=== PATIENT | male | born 1960 | race Hispanic/Latino ===

== ENCOUNTER 2016-06-09 02:25 | Inpatient (IN) | payer MEDICAID, OTHER ==
[2016-06-09 03:18] LABS: Basophils % (Auto) 0.6 % (0.0-1.8); Eosinophils % (Auto) 3.8 % (0.0-4.3); Hematocrit 36.6 % (35.5-45.6); Hemoglobin 12.2 gm/dl (11.8-15.2); Mean Corpuscular HGB Conc 33 % (32-34); Mean Corpuscular Hemoglobin 31 pg (28-32); Mean Corpuscular Volume 94 fl (84-94); Platelet Count 123 K/mm3 (140-440); Red Blood Count 3.91 M/mm3 (3.65-5.03); White Blood Count 7.8 K/mm3 (4.5-11.0)
[2016-06-09 03:31] LABS: BUN/Creatinine Ratio 13.84; Calcium 9.2 mg/dL (8.4-10.2); Chloride 96.7 mmol/L (98-107); Potassium 3.4 mmol/L (3.6-5.0)
[2016-06-09] MEDS ORDERED: VANCOMYCIN VIAL IV ONE (07:04)
[2016-06-09] MEDS ORDERED: MORPHINE IV ONE (07:06)
[2016-06-09] MEDS ORDERED: K-DUR PO ONE (07:07)
--- NOTE | 2016-06-09 07:07 | Emergency Department Report ---
ED General Adult HPI - General Chief complaint: Extremity Problem,Nontraumatic Stated complaint: LEG PAIN Time Seen by Provider: 06/09/16 06:54 Source: patient, EMS, RN notes reviewed Mode of arrival: Wheelchair Limitations: Physical Limitation - History of Present Illness Initial comments: This is a 55-year-old male. He is previously unknown to me. Has a past medical history of alcoholic cirrhosis, hepatic encephalopathy, and is a poor historian. The patient reports that a few weeks ago he was admitted to a hospital in [place], ([place]), and had an open reduction internal fixation of a left lower extremity ankle injury. He does not recall the name of his orthopedic surgeon. He was then discharged, and followed up at another hospital over here in [place] , [facility], and was found to have infected hardware, hardware was taken out, patient was admitted to the hospital, but he signed out AGAINST MEDICAL ADVICE. He does not know the name of the orthopedic surgeon there who removed the hardware. He presents to the ER today complaining of sharp pain to the left distal ankle, redness, pus, swelling, discharge. No fevers or chills, no chest pain or shortness of breath, no abdominal pain, no homicidal suicidal ideations. The pain is sharp, constant, does not radiate anywhere, increases with palpation , range of motion, and decreases with rest. -: Gradual Location: left, lower extremity Severity scale (0 -10): 5 Quality: aching, sharp Consistency: constant Improves with: rest Worsens with: movement Associated Symptoms: loss of appetite, malaise, weakness. denies: chest pain, cough, diaphoresis, headaches - Related Data Previous Rx's Medication Instructions Recorded Last Taken Type Ciprofloxacin HCl [Ciprofloxacin 500 mg PO BID 42 Days 06/14/16 Unknown Rx TAB] Lactulose 15 - 30 ml PO TID PRN 30 Days 06/14/16 Unknown Rx Levothyroxine [Synthroid] 88 mcg PO DAILY #30 tablet 06/14/16 Unknown Rx Multivitamin Tab [Multiple Vitamin 1 each PO DAILY #30 tablet 06/14/16 Unknown Rx TAB (Theragran)] Omeprazole 20 mg PO QDAY #30 06/14/16 Unknown Rx Rifaximin [Xifaxan] 550 mg PO BID #60 tablet 06/14/16 Unknown Rx Spironolactone 50 mg PO QDAY #30 06/14/16 Unknown Rx Thiamine [Vitamin B-1] 100 mg PO QDAY #30 tablet 06/14/16 Unknown Rx oxyCODONE [Roxicodone TAB] 5 mg PO Q6HR #20 tablet 06/14/16 Unknown Rx Allergies Allergy/AdvReac Type Severity Reaction Status Date / Time No Known Allergies Allergy Verified 10/06/15 09:46 ED Review of Systems ROS: Stated complaint: LEG PAIN Other details as noted in HPI Constitutional: malaise. denies: fever Eyes: denies: vision change ENT: denies: epistaxis Respiratory: see HPI Cardiovascular: denies: chest pain Gastrointestinal: denies: abdominal pain Genitourinary: as per HPI Musculoskeletal: joint swelling, arthralgia, myalgia Skin: lesions, change in color Neurological: weakness Psychiatric: denies: suicidal thoughts ED Past Medical Hx - Past Medical History Previous Medical History?: Yes Hx HIV: No Additional medical history: encephalopathy / MRSA - Surgical History Past Surgical History?: No - Social History Smoking Status: Current Every Day Smoker Substance Use Type: Alcohol - Medications Home Medications: Home Medications Medication Instructions Recorded Confirmed Last Taken Type Ciprofloxacin HCl [Ciprofloxacin 500 mg PO BID 42 Days 06/14/16 Unknown Rx TAB] Lactulose 15 - 30 ml PO TID PRN 30 Days 06/14/16 Unknown Rx Levothyroxine [Synthroid] 88 mcg PO DAILY #30 tablet 06/14/16 Unknown Rx Multivitamin Tab [Multiple Vitamin 1 each PO DAILY #30 tablet 06/14/16 Unknown Rx TAB (Theragran)] Omeprazole 20 mg PO QDAY #30 06/14/16 Unknown Rx Rifaximin [Xifaxan] 550 mg PO BID #60 tablet 06/14/16 Unknown Rx Spironolactone 50 mg PO QDAY #30 06/14/16 Unknown Rx Thiamine [Vitamin B-1] 100 mg PO QDAY #30 tablet 06/14/16 Unknown Rx oxyCODONE [Roxicodone TAB] 5 mg PO Q6HR #20 tablet 06/14/16 Unknown Rx ED Physical Exam - General Limitations: No Limitations, Physical Limitation General appearance: in no apparent distress, lethargic - Head Head exam: Present: atraumatic, normocephalic - Eye Eye exam: Present: normal appearance, EOMI. Absent: nystagmus - ENT ENT exam: Present: normal exam, normal orophraynx, mucous membranes moist, normal external ear exam - Neck Neck exam: Present: normal inspection, full ROM. Absent: tenderness, meningismus - Respiratory Respiratory exam: Present: normal lung sounds bilaterally. Absent: respiratory distress, wheezes, rales, rhonchi, stridor, chest wall tenderness, accessory muscle use, decreased breath sounds - Cardiovascular Cardiovascular Exam: Present: regular rate, normal rhythm, normal heart sounds. Absent: bradycardia, tachycardia, irregular rhythm, systolic murmur, diastolic murmur, rubs, gallop - GI/Abdominal GI/Abdominal exam: Present: soft, normal bowel sounds. Absent: distended, tenderness, guarding, rebound, rigid, pulsatile mass - Rectal Rectal exam: Present: deferred - Extremities Exam Extremities exam: Present: tenderness, normal capillary refill, other (the bilateral upper extremities are unremarkable and within normal limits. The right lower extremity is unremarkable and within normal limits. At the distal aspect of the left lower extremity, sutures are noted, surgical site appears to be red, with purulence. 2+ pulses noted in 4 extremities, the compartments are soft. The pelvis is stable. The foot is nontender. The knee, and thigh are also unremarkable.). Absent: calf tenderness - Back Exam Back exam: Present: normal inspection, full ROM. Absent: tenderness, CVA tenderness (R), CVA tenderness (L), muscle spasm, paraspinal tenderness, vertebral tenderness - Neurological Exam Neurological exam: Present: alert, oriented X3, other (Extraocular movements intact. Tongue midline. No facial droop. Facial sensation intact to light touch in the V1, V2, V3 distribution bilaterally. 5 and 5 strength in 4 extremities.. Sensation is intact to light touch in 4 extremities.). Absent: motor sensory deficit - Psychiatric Psychiatric exam: Absent: homicidal ideation, suicidal ideation - Skin Skin exam: Present: rash, erythema ED Course Vital Signs 06/09/16 06/09/16 06/09/16 02:44 05:52 06:06 Temperature 98.1 F Pulse Rate 90 66 Respiratory 16 18 18 Rate Blood Pressure 130/104 Blood Pressure 110/59 [Left] O2 Sat by Pulse 97 99 Oximetry 06/09/16 06/09/16 06/09/16 08:31 08:40 08:50 Temperature Pulse Rate Respiratory Rate Blood Pressure 120/64 120/64 120/66 Blood Pressure [Left] O2 Sat by Pulse 96 97 Oximetry 06/09/16 06/09/16 06/09/16 09:00 09:13 09:21 Temperature Pulse Rate Respiratory Rate Blood Pressure 120/66 125/66 Blood Pressure [Left] O2 Sat by Pulse 96 97 95 Oximetry 06/09/16 06/09/16 06/09/16 09:30 09:41 09:51 Temperature Pulse Rate Respiratory Rate Blood Pressure 127/61 127/61 122/53 Blood Pressure [Left] O2 Sat by Pulse 96 98 98 Oximetry 06/09/16 10:00 Temperature Pulse Rate Respiratory Rate Blood Pressure 121/62 Blood Pressure [Left] O2 Sat by Pulse 94 Oximetry - Reevaluation(s) Reevaluation #1: 06/09/16 08:50 Differential diagnosis: Osteomyelitis, cellulitis, myositis, alcohol dependence , chronic hepatic encephalopathy Assessment and plan: 55-year-old male with probable osteomyelitis and sialitis. He is afebrile with return vital signs, somnolent, but easily arousable, protecting his airway. He is alert and oriented 3, has a GCS of 15, with an NIH score of 0, he is not homicidal, he is not suicidal, he does not require 1013 at this time. We are attempting to obtain his old medical records from the other facility, they have not been sent yet. Case is discussed with the Hospital physician, Dr. Ricardo, he accepts the patient to his service. Case discussed with orthopedics, Dr. Olivas, he will follow as a consult. Blood cultures, , wound cultures sent, we will treat the patient with vancomycin and gentamicin pending culture results. I will defer to the inpatient team to consult infectious disease if they feel like it is required. ED Medical Decision Making - Lab Data Result diagrams: 06/10/16 06:20 06/10/16 06:20 Vital Signs 06/09/16 06/09/16 06/09/16 02:44 05:52 06:06 Temperature 98.1 F Pulse Rate 90 66 Respiratory 16 18 18 Rate Blood Pressure 130/104 Blood Pressure 110/59 [Left] O2 Sat by Pulse 97 99 Oximetry Lab Results 06/09/16 06/09/16 06/09/16 Range/Units 02:56 02:56 07:17 WBC 7.8 (4.5-11.0) K/mm3 RBC 3.91 (3.65-5.03) M/mm3 Hgb 12.2 (11.8-15.2) gm/dl Hct 36.6 (35.5-45.6) % MCV 94 (84-94) fl MCH 31 (28-32) pg MCHC 33 (32-34) % RDW 15.0 (13.2-15.2) % Plt Count 123 L (140-440) K/mm3 Lymph % (Auto) 19.0 (13.4-35.0) % [place] % (Auto) 11.9 H (0.0-7.3) % Eos % (Auto) 3.8 (0.0-4.3) % Baso % (Auto) 0.6 (0.0-1.8) % Lymph # 1.5 (1.2-5.4) K/mm3 [place] # 0.9 H (0.0-0.8) K/mm3 Eos # 0.3 (0.0-0.4) K/mm3 Baso # 0.0 (0.0-0.1) K/mm3 Seg Neutrophils % 64.7 (40.0-70.0) % Seg Neutrophils # 5.0 (1.8-7.7) K/mm3 ESR 12 (0-20) mm/Hr PT (12.2-14.9) Sec. INR (0.87-1.13) Sodium 134 L (137-145) mmol/L Potassium 3.4 L (3.6-5.0) mmol/L Chloride 96.7 L (98-107) mmol/L Carbon Dioxide 21 L (22-30) mmol/L Anion Gap 20 mmol/L BUN 18 (9-20) mg/dL Creatinine 1.3 (0.8-1.5) mg/dL Estimated GFR 58 ml/min BUN/Creatinine Ratio 13.84 % Glucose 76 (75-100) mg/dL Lactic Acid (0.7-2.0) mmol/L Calcium 9.2 (8.4-10.2) mg/dL Magnesium (1.7-2.3) mg/dL Total Bilirubin (0.1-1.2) mg/dL Direct Bilirubin (0-0.2) mg/dL Indirect Bilirubin mg/dL AST (5-40) units/L ALT (7-56) units/L Alkaline Phosphatase (35-129) units/L Ammonia (25-60) umol/L Total Creatine Kinase (55-170) units/L C-Reactive Protein (0.00-1.30) mg/dL Total Protein (6.3-8.2) g/dL Albumin (3.9-5) g/dL Albumin/Globulin Ratio % 06/09/16 06/09/16 06/09/16 Range/Units 07:17 07:17 07:17 WBC (4.5-11.0) K/mm3 RBC (3.65-5.03) M/mm3 Hgb (11.8-15.2) gm/dl Hct (35.5-45.6) % MCV (84-94) fl MCH (28-32) pg MCHC (32-34) % RDW (13.2-15.2) % Plt Count (140-440) K/mm3 Lymph % (Auto) (13.4-35.0) % [place] % (Auto) (0.0-7.3) % Eos % (Auto) (0.0-4.3) % Baso % (Auto) (0.0-1.8) % Lymph # (1.2-5.4) K/mm3 [place] # (0.0-0.8) K/mm3 Eos # (0.0-0.4) K/mm3 Baso # (0.0-0.1) K/mm3 Seg Neutrophils % (40.0-70.0) % Seg Neutrophils # (1.8-7.7) K/mm3 ESR (0-20) mm/Hr PT 15.2 H (12.2-14.9) Sec. INR 1.21 H (0.87-1.13) Sodium (137-145) mmol/L Potassium (3.6-5.0) mmol/L Chloride (98-107) mmol/L Carbon Dioxide (22-30) mmol/L Anion Gap mmol/L BUN (9-20) mg/dL Creatinine (0.8-1.5) mg/dL Estimated GFR ml/min BUN/Creatinine Ratio % Glucose (75-100) mg/dL Lactic Acid (0.7-2.0) mmol/L Calcium (8.4-10.2) mg/dL Magnesium (1.7-2.3) mg/dL Total Bilirubin 1.1 (0.1-1.2) mg/dL Direct Bilirubin 0.4 H (0-0.2) mg/dL Indirect Bilirubin 0.7 mg/dL AST 33 (5-40) units/L ALT 15 (7-56) units/L Alkaline Phosphatase 79 (35-129) units/L Ammonia 68.0 H (25-60) umol/L Total Creatine Kinase 135 (55-170) units/L C-Reactive Protein 2.30 H (0.00-1.30) mg/dL Total Protein 6.2 L (6.3-8.2) g/dL Albumin 3.0 L (3.9-5) g/dL Albumin/Globulin Ratio 0.9 % 06/09/16 06/09/16 Range/Units 07:17 07:28 WBC (4.5-11.0) K/mm3 RBC (3.65-5.03) M/mm3 Hgb (11.8-15.2) gm/dl Hct (35.5-45.6) % MCV (84-94) fl MCH (28-32) pg MCHC (32-34) % RDW (13.2-15.2) % Plt Count (140-440) K/mm3 Lymph % (Auto) (13.4-35.0) % [place] % (Auto) (0.0-7.3) % Eos % (Auto) (0.0-4.3) % Baso % (Auto) (0.0-1.8) % Lymph # (1.2-5.4) K/mm3 [place] # (0.0-0.8) K/mm3 Eos # (0.0-0.4) K/mm3 Baso # (0.0-0.1) K/mm3 Seg Neutrophils % (40.0-70.0) % Seg Neutrophils # (1.8-7.7) K/mm3 ESR (0-20) mm/Hr PT (12.2-14.9) Sec. INR (0.87-1.13) Sodium (137-145) mmol/L Potassium (3.6-5.0) mmol/L Chloride (98-107) mmol/L Carbon Dioxide (22-30) mmol/L Anion Gap mmol/L BUN (9-20) mg/dL Creatinine (0.8-1.5) mg/dL Estimated GFR ml/min BUN/Creatinine Ratio % Glucose (75-100) mg/dL Lactic Acid 1.7 (0.7-2.0) mmol/L Calcium (8.4-10.2) mg/dL Magnesium 1.7 (1.7-2.3) mg/dL Total Bilirubin (0.1-1.2) mg/dL Direct Bilirubin (0-0.2) mg/dL Indirect Bilirubin mg/dL AST (5-40) units/L ALT (7-56) units/L Alkaline Phosphatase (35-129) units/L Ammonia (25-60) umol/L Total Creatine Kinase (55-170) units/L C-Reactive Protein (0.00-1.30) mg/dL Total Protein (6.3-8.2) g/dL Albumin (3.9-5) g/dL Albumin/Globulin Ratio % - Radiology Data Radiology results: image reviewed interpreted by me: X-ray of the left ankle demonstrates soft tissue swelling, osseous disruption of the distal fibula, likely consistent with osteomyelitis. Critical care attestation.: If time is entered above; I have spent that time in minutes in the direct care of this critically ill patient, excluding procedure time. ED Disposition Clinical Impression: Osteomyelitis Qualifiers: Laterality: left Disposition: OP ADMITTED IP TO THIS HOSP Is pt being admited?: Yes Condition: Good
[2016-06-09] MEDS ORDERED: GARAMYCIN 120 MG in NACL 0.9% 100 ML IV SCH (07:15)
[2016-06-09 07:59] LABS: Albumin/Globulin Ratio 0.9 %; Bilirubin,Direct 0.4 mg/dL (0-0.2); Bilirubin,Indirect 0.7 mg/dL; Bilirubin,Total 1.1 mg/dL (0.1-1.2); C-Reactive Protein 2.3 mg/dL (0.00-1.30); Total Protein 6.2 g/dL (6.3-8.2)
[2016-06-09] MEDS ORDERED: VANCOMYCIN PHARMACY TO DOSE IV SCH (08:00)
[2016-06-09] MEDS ORDERED: VANCOMYCIN 1,750 MG in NACL 0.9% 500 ML 500 ML IV ONE (08:00)
[2016-06-09 08:09] LABS: INR 1.21 (0.87-1.13)
--- NOTE | 2016-06-09 08:42 | Admit Criteria Form ---
Admission Criteria Documentation: OSTEOMYELITIS Clinical Indications for Admission to Inpatient Care (Place 'X' for any and all applicable criteria) Admission is indicated by 1 or more of the following (1)(2)(3)(4)(5)(6): [ ] I. Significant systemic illness indicated by 2 or more of the following: [ ]a) Core (eg rectal) temperature greater or equal [id number](37.8C) in an adult [ ]b) Oral temperature[A] greater than or equal to 99.3 degrees F ( 37.4 degrees C) in an adult [ ]c) Heart rate greater than 90 beats per minute [ ]d) Respiratory rate greater than 20 breaths per minute or PaCO2 less than 32 mm Hg (4.3 kPa) [ ]e) White blood cell count > 12,000/mm3 (12 x109/L) or < 4000/mm3 ( 4 x109/L) or > 10% band cells [ ] II. Hemodynamic instability [X ] III. Severe pain requiring acute inpatient management [ ] IV. Bacteremia [ ] V. Altered Mental status that is severe or persistent [ X] . Limb-threatening infection [ ] VII. Suspected necrotizing soft tissue infection (e.g., gas in tissue) [ ] VIII.Surgical intervention required (e.g., bone or soft tissue debridement, removal of foreign body, or revascularization procedure) not performable in outpatient or emergency department level of care(7) [ ] IX. Appropriate monitoring and therapy (IV antibiotics) cannot be immediately arranged for home or outpatient setting [ X] X. Failure of outpatient treatment [X ] XI. High-risk comorbid condition present including 1 or more of the following: [ ]a) Poorly controlled diabetes (e.g., HbA1c greater than 10% (0.1)) [ ]b) Vascular insufficiency to affected area [ X]c) Cirrhosis [ ]d) Neutropenia [ ]e) Asplenia [ ]f) Immunosuppression (e.g., chronic systemic corticosteroid use) [ ]g) Symptomatic heart failure [ ] XII. Joint involvement (e.g., septic arthritis) suspected [ ] XIII.Vertebral osteomyelitis [ ] XIV. Skull-base osteomyelitis (e.g.,"malignant external otitis")[A](8)(9)(10 ) Extended stay beyond goal length of stay may be needed for(1)(3)(4)(5)(24)(25): [ ]a) Inadequate clinical response to antibiotics (e.g., continued fever, hypotension) [ ]b) Bacteremia [ ]c) Surgical intervention needed (e.g., beyond superficial debridement)(26) [ ]d) Vertebral osteomyelitis with spinal cord compression, abscess formation, or mechanical instability [ ]e) Antibiotic-resistant organism identified (e.g., methicillin-resistant Staphylococcal aureus) [ ]f) Severe concomitant cellulitis [ ]g) Acute metabolic disorder [ ]h) Unstable comorbidities (e.g., heart failure, renal insufficiency, immunosuppressed state)(28) [ ]i) Clinically significant malnutrition [ ]j) Acute renal failure The original [facility] tibdit content created by Cristy Galeano has been revised. The portions of the content which have been revised are identified through the use of italic text or in bold, and Cristy Galeano has neither reviewed nor approved the modified material. All other unmodified content is copyright [facility] Galeano.Edition 2016. Admission Criteria Met: Yes
--- NOTE | 2016-06-09 08:54 | History and Physical Report ---
History of Present Illness Date of examination: 06/09/16 Past History Past Medical History: GERD, other (S/P Left ankle repair with hardware) Medications and Allergies Allergies Allergy/AdvReac Type Severity Reaction Status Date / Time No Known Allergies Allergy Verified 10/06/15 09:46 Home Medications Medication Instructions Recorded Confirmed Last Taken Type Lactulose 15 - 30 ml PO TID PRN 10/06/15 10/06/15 Unknown History Ms Contin ER 30 mg PO QDAY 10/06/15 10/06/15 Unknown History Omeprazole 20 mg PO QDAY 10/06/15 10/06/15 Unknown History SEROquel 50 mg PO QHS 10/06/15 10/06/15 Unknown History Spironolactone 50 mg PO QDAY 10/06/15 10/06/15 Unknown History Xifaxan 550 mg PO BID 10/06/15 10/06/15 Unknown History Multivitamin Tab [Multiple Vitamin 1 each PO DAILY tablet 10/10/15 Unknown Rx TAB (Theragran)] Rifaximin [Xifaxan] 550 mg PO BID #60 tablet 10/10/15 Unknown Rx Thiamine [Vitamin B-1] 100 mg PO QDAY #30 tablet 10/10/15 Unknown Rx Active Meds: Active Medications Gentamicin Sulfate 120 mg/ (Sodium Chloride) 103 mls @ 200 mls/hr IV NOW JESIKA PRN Reason: Protocol Last Admin: 06/09/16 08:33 Dose: 200 mls/hr Vancomycin HCl 1,750 mg/ (Sodium Chloride) 535 mls @ 333.333 mls/hr IV ONCE.ED ONE Stop: 06/09/16 09:36 Vancomycin HCl 1,250 mg/ (Sodium Chloride) 275 mls @ 166.667 mls/hr IV Q24H JESIKA Vancomycin HCl (Vancomycin Pharmacy To Dose) 1 each IV PKCONSULT JESIKA PRN Reason: Protocol Review of Systems Musculoskeletal: redness of joints, hot joints Exam - Constitutional Vitals: Temp Pulse Resp BP Pulse Ox 98.1 F 66 18 110/59 99 06/09/16 02:44 06/09/16 06:06 06/09/16 06:06 06/09/16 06:06 06/09/16 06:06 General appearance: Present: mild distress - EENT Eyes: Present: PERRL, EOM intact ENT: hearing intact, clear oral mucosa, dentition normal - Neck Neck: Present: supple, normal ROM - Respiratory Respiratory effort: normal Respiratory: bilateral: CTA - Cardiovascular Rhythm: regular Heart Sounds: Present: S1 & S2 - Extremities Extremity abnormal: edema, erythema, tenderness, other (Yellowish drainage from left ankle) - Abdominal General gastrointestinal: Present: soft, non-tender, non-distended, normal bowel sounds - Musculoskeletal Musculoskeletal: strength equal bilaterally - Psychiatric Psychiatric: appropriate mood/affect, intact judgment & insight - Neurologic Neurologic: CNII-XII intact, moves all extremities Results - Labs CBC & Chem 7: 06/09/16 02:56 06/09/16 02:56 Labs: Laboratory Last Values WBC 7.8 K/mm3 (4.5-11.0) 06/09/16 02:56 RBC 3.91 M/mm3 (3.65-5.03) 06/09/16 02:56 Hgb 12.2 gm/dl (11.8-15.2) 06/09/16 02:56 Hct 36.6 % (35.5-45.6) 06/09/16 02:56 MCV 94 fl (84-94) 06/09/16 02:56 MCH 31 pg (28-32) 06/09/16 02:56 MCHC 33 % (32-34) 06/09/16 02:56 RDW 15.0 % (13.2-15.2) 06/09/16 02:56 Plt Count 123 K/mm3 (140-440) L 06/09/16 02:56 Lymph % (Auto) 19.0 % (13.4-35.0) 06/09/16 02:56 [place] % (Auto) 11.9 % (0.0-7.3) H 06/09/16 02:56 Eos % (Auto) 3.8 % (0.0-4.3) 06/09/16 02:56 Baso % (Auto) 0.6 % (0.0-1.8) 06/09/16 02:56 Lymph # 1.5 K/mm3 (1.2-5.4) 06/09/16 02:56 [place] # 0.9 K/mm3 (0.0-0.8) H 06/09/16 02:56 Eos # 0.3 K/mm3 (0.0-0.4) 04/28/17 02:56 Baso # 0.0 K/mm3 (0.0-0.1) 06/09/16 02:56 Seg Neutrophils % 64.7 % (40.0-70.0) 06/09/16 02:56 Seg Neutrophils # 5.0 K/mm3 (1.8-7.7) 06/09/16 02:56 ESR 12 mm/Hr (0-20) 06/09/16 07:17 PT 15.2 Sec. (12.2-14.9) H 06/09/16 07:17 INR 1.21 (0.87-1.13) H 06/09/16 07:17 Sodium 134 mmol/L (137-145) L 06/09/16 02:56 Potassium 3.4 mmol/L (3.6-5.0) L 06/09/16 02:56 Chloride 96.7 mmol/L (98-107) L 06/09/16 02:56 Carbon Dioxide 21 mmol/L (22-30) L 06/09/16 02:56 Anion Gap 20 mmol/L 06/09/16 02:56 BUN 18 mg/dL (9-20) 06/09/16 02:56 Creatinine 1.3 mg/dL (0.8-1.5) 06/09/16 02:56 Estimated GFR 58 ml/min 06/09/16 02:56 BUN/Creatinine Ratio 13.84 % 06/09/16 02:56 Glucose 76 mg/dL (75-100) 06/09/16 02:56 Lactic Acid 1.7 mmol/L (0.7-2.0) 06/09/16 07:28 Calcium 9.2 mg/dL (8.4-10.2) 06/09/16 02:56 Magnesium 1.7 mg/dL (1.7-2.3) 06/09/16 07:17 Total Bilirubin 1.1 mg/dL (0.1-1.2) 06/09/16 07:17 Direct Bilirubin 0.4 mg/dL (0-0.2) H 06/09/16 07:17 Indirect Bilirubin 0.7 mg/dL 06/09/16 07:17 AST 33 units/L (5-40) 06/09/16 07:17 ALT 15 units/L (7-56) 06/09/16 07:17 Alkaline Phosphatase 79 units/L (35-129) 06/09/16 07:17 Ammonia 68.0 umol/L (25-60) H 06/09/16 07:17 Total Creatine Kinase 135 units/L (55-170) 06/09/16 07:17 C-Reactive Protein 2.30 mg/dL (0.00-1.30) H 06/09/16 07:17 Total Protein 6.2 g/dL (6.3-8.2) L 06/09/16 07:17 Albumin 3.0 g/dL (3.9-5) L 06/09/16 07:17 Albumin/Globulin Ratio 0.9 % 06/09/16 07:17 Assessment and Plan - Patient Problems (1) Ankle osteomyelitis, left Current Visit: Yes Status: Acute Qualifiers: Chronicity: C Plan to address problem: We will start patient on IV antibiotics, will get infectious disease consult, will get orthopedic consult, adequate pain control. (2) Abscess or cellulitis of ankle Current Visit: Yes Status: Acute Plan to address problem: We will start patient on IV antibiotics, will get infectious disease consult, will get orthopedic consult, adequate pain control.
--- NOTE | 2016-06-09 08:58 | XRay Report ---
Left ankle: Ankle swelling and infection. There is moderate swelling involving the soft tissues of the distal leg extending into the proximal foot. There is some ulceration along lateral ankle tissues. There are severe destructive changes of the distal fibula and possibly involving the distal lateral tibia. The bones otherwise appear well mineralized. Impression: Soft tissue findings of infection and bony destruction consistent with osteomyelitis.
[2016-06-09] MEDS ORDERED: TYLENOL PO PRN (09:05)
[2016-06-09] MEDS ORDERED: MILK OF MAGNESIA PO PRN (09:05)
[2016-06-09] MEDS ORDERED: ZOFRAN IV PRN (09:05)
[2016-06-09] MEDS ORDERED: DULCOLAX PR PRN (09:05)
[2016-06-09] MEDS ORDERED: LOVENOX SUB-Q SCH (10:00)
[2016-06-09] MEDS: PERCOCET 5/325 PO PRN (11:26)
[2016-06-09] MEDS: NACL 0.9% 1000 ML 1,000 ML IV SCH ×2 (11:26→20:36)
[2016-06-09] MEDS: LOVENOX SUB-Q SCH (12:50)
--- NOTE | 2016-06-09 14:52 | Consultation ---
History of Present Illness - HPI Consult date: 06/09/16 Consult reason: other History of present illness: Left ankle infection Past History Past Medical History: GERD, other (S/P Left ankle repair with hardware) Medications and Allergies Allergies Allergy/AdvReac Type Severity Reaction Status Date / Time No Known Allergies Allergy Verified 10/06/15 09:46 Home Medications Medication Instructions Recorded Confirmed Last Taken Type Lactulose 15 - 30 ml PO TID PRN 10/06/15 06/09/16 06/08/16 History 15ml Omeprazole 20 mg PO QDAY 10/06/15 06/09/16 06/08/16 History 1 Spironolactone 50 mg PO QDAY 10/06/15 06/09/16 06/08/16 History 1 tab Multivitamin Tab [Multiple Vitamin 1 each PO DAILY tablet 10/10/15 06/09/16 Rx TAB (Theragran)] 1 tab Rifaximin [Xifaxan] 550 mg PO BID #60 tablet 10/10/15 06/09/16 06/06/16 Rx 1 tab Thiamine [Vitamin B-1] 100 mg PO QDAY #30 tablet 10/10/15 06/09/16 06/08/16 Rx 1 tab Active Meds: Active Medications Acetaminophen (Tylenol) 650 mg PO Q4H PRN PRN Reason: Pain MILD(1-3)/Fever >100.5/JAY Bisacodyl (Dulcolax) 10 mg [place] QDAY PRN PRN Reason: Constipation unrelieved by MOM Enoxaparin Sodium (Lovenox) 40 mg SUB-Q QDAY@1000 JESIKA Last Admin: 06/09/16 12:50 Dose: 40 mg Vancomycin HCl 1,250 mg/ (Sodium Chloride) 275 mls @ 166.667 mls/hr IV Q18H [facility] Sodium Chloride (Nacl 0.9% 1000 Ml) 1,000 mls @ 125 mls/hr IV DIRECT [facility] Last Admin: 06/09/16 11:26 Dose: 125 mls/hr Magnesium Hydroxide (Milk Of Magnesia) 30 ml PO Q4H PRN PRN Reason: Constipation Morphine Sulfate (Morphine) 2 mg IV Q4H PRN PRN Reason: Pain, Moderate (4-6) Ondansetron HCl (Zofran) 4 mg IV Q8H PRN PRN Reason: N/V unrelieved by Reglan Oxycodone/Acetaminophen (Percocet 5/325) 1 tab PO Q6H PRN PRN Reason: Pain, Moderate (4-6) Last Admin: 06/09/16 11:26 Dose: 1 tab Vancomycin HCl (Vancomycin Pharmacy To Dose) 1 each IV PKCONSULT JESIKA PRN Reason: Protocol Assessment and Plan - Patient Problems (1) Osteomyelitis Current Visit: Yes Status: Acute Qualifiers: Osteomyelitis location: O Laterality: left Chronicity: subacute Plan to address problem: ID consult.,antibiotics( may need for 6 weeks) Crutches, elevation, partial wt bearing Local wound care. To be discharged with antibiotics, follow up with his surgeon (Dr. Ward who operated on him two weeks ago) See voice Dictation (2) Continuous opioid dependence Current Visit: Yes Status: Chronic Plan to address problem: On oxycontin since 2010, medical management per air table operator
[2016-06-09] MEDS: MORPHINE IV PRN ×2 (17:17→20:28)
[2016-06-10] MEDS: MORPHINE IV PRN ×3 (00:48→10:02)
[2016-06-10] MEDS: VANCOMYCIN 1,250 MG in NACL 0.9% 250ML 250 ML IV SCH ×2 (01:08→20:27)
--- NOTE | 2016-06-10 03:03 | Consultation ---
REASON FOR CONSULTATION: Osteomyelitis, left distal fibula. HISTORY OF PRESENT ILLNESS: This is a 55-year-old man who approximately 4 weeks ago or so sustained a crush injury with fracture involving the lateral malleolus. He was in [place] where he underwent open reduction and internal fixation and subsequently developed infection. He then presented to [facility] where he was seen by Dr. Deandre Ward who then removed internal fixation. He was hospitalized and because of the infection recommend long-term antibiotics. Somehow, he got himself discharged. He presented to the Emergency Room with redness, pain and was admitted through the Emergency Room by the hospitalist, Internal Medicine service. Orthopedic consultation requested for because of the \\"osteomyelitis/cellulitis of the ankle.\\" PAST MEDICAL HISTORY: Include he has a brain surgery in 2010 or so. Chronic narcotic addiction, he has been on OxyContin since 2010 on a frequent basis and he had been obtaining these medications in [place]. He reports that since he came to [place] and to [place] he did not have his medications and therefore his pain has increased and he also reports that he developed a seizure because of this. PHYSICAL EXAMINATION: Today shows a fairly well. He appears comfortable in bed. Examination of the ankle area shows he has sutures in place. There is an area of redness along the incisional region. There was minimal serosanguineous drainage at the lower part of the incision. Circulatory status of the extremity appears intact. IMAGING: X-rays of the ankle, AP and lateral views shows the internal fixation device has been completely removed. There are posttraumatic changes with destruction of the lateral malleolar region consistent with probable osteomyelitis in this area. DIAGNOSES: 1. Possible osteomyelitis with cellulitis, lateral malleolus, left ankle. 2. Chronic narcotic dependency and chronic pain. RECOMMENDATIONS: At this time would be to continue with antibiotics and I believe he will need antibiotics for a period of 6 weeks or so. Recommend ID consultation and appropriate antibiotic therapy, crutches, protected weightbearing, and nonnarcotic analgesics for pain control. Once the antibiotics can be arranged, he can be discharged. He could follow up with his operating surgeon, Dr. Deandre Ward on an outpatient basis. Thank you for this consultation. Sincerely, JOB# [id number] RVN/NTS
[2016-06-10] MEDS: PERCOCET 5/325 PO PRN ×2 (03:14→08:31)
[2016-06-10] MEDS: NACL 0.9% 1000 ML 1,000 ML IV SCH ×2 (06:35→18:48)
[2016-06-10 06:55] LABS: Basophils % (Auto) 0.5 % (0.0-1.8); Hematocrit 33.1 % (35.5-45.6); Mean Corpuscular HGB Conc 33 % (32-34); Mean Corpuscular Hemoglobin 31 pg (28-32); Mean Corpuscular Volume 94 fl (84-94); Platelet Count 106 K/mm3 (140-440); Red Blood Count 3.52 M/mm3 (3.65-5.03); Red Cell Distribution Width 15.1 % (13.2-15.2); White Blood Count 4.9 K/mm3 (4.5-11.0)
[2016-06-10 07:15] LABS: Alanine Aminotransferase 10 units/L (7-56); Albumin 2.4 g/dL (3.9-5); Albumin/Globulin Ratio 0.9 %; Alkaline Phosphatase 65 units/L (35-129); Anion Gap 15 mmol/L; BUN/Creatinine Ratio 13.75; Blood Urea Nitrogen 11 mg/dL (9-20); Calcium 8.2 mg/dL (8.4-10.2); Carbon Dioxide 22 mmol/L (22-30); Chloride 109.4 mmol/L (98-107); Glucose 94 mg/dL (75-100); Potassium 3.9 mmol/L (3.6-5.0); Sodium 142 mmol/L (137-145); Total Protein 5.2 g/dL (6.3-8.2)
--- NOTE | 2016-06-10 08:06 | Progress Note ---
Assessment and Plan Assessment and plan: 55-year-old male with a history of left ankle repair with hardware presents to the hospital with drainage from the left ankle Patient stated he had surgery on her left ankle about 5 weeks ago. Patient state that the screw was taken out of his ankle, and that he had picc line and several weeks of abx. Patient did not receive adequate follow-up care patient state that he came in today because the pain and drainage from the leg. States that his orthopedic surgeons were in [place] and has since relocated to [place]. (1) Ankle osteomyelitis, left ankle We will start patient on IV antibiotics, will get infectious disease consult, will get orthopedic consult, adequate pain control. (2) Continuous opioid dependence continue oxycodone 3. Anxiety disorder/depression continue ativan continue seroquel 4. CLD Rifaximin and lactulose History Interval history: continues to c/o of left ankle pain, drainage, swelling Hospitalist Physical - Physical exam Narrative exam: General: Patient appears well in no distress HEENT: MMM, EOMI cardiac: S1-S2 heard lungs: clear to auscultation, abdomen: soft, nontender, nondistended bowel sounds positive extremities: left foot and ankle edema, foul smelling purulent drainage around stiches on the lateral aspect on ankle Skin: no rash or lesion Neuro: no focal deficit Psych: appropriate behavior and mood, cognition intact - Constitutional Vitals: Temp Pulse Resp BP Pulse Ox 99.1 F 69 18 135/77 97 06/10/16 07:25 06/10/16 07:25 06/10/16 07:25 06/10/16 07:25 06/10/16 07:25 General appearance: Present: mild distress Results - Labs CBC & Chem 7: 06/10/16 06:20 06/10/16 06:20 Labs: Laboratory Last Values WBC 4.9 K/mm3 (4.5-11.0) 06/10/16 06:20 RBC 3.52 M/mm3 (3.65-5.03) L 06/10/16 06:20 Hgb 11.0 gm/dl (11.8-15.2) L 06/10/16 06:20 Hct 33.1 % (35.5-45.6) L 06/10/16 06:20 MCV 94 fl (84-94) 06/10/16 06:20 MCH 31 pg (28-32) 06/10/16 06:20 MCHC 33 % (32-34) 06/10/16 06:20 RDW 15.1 % (13.2-15.2) 06/10/16 06:20 Plt Count 106 K/mm3 (140-440) L 06/10/16 06:20 Lymph % (Auto) 30.2 % (13.4-35.0) 06/10/16 06:20 [place] % (Auto) 13.6 % (0.0-7.3) H 06/10/16 06:20 Eos % (Auto) 6.0 % (0.0-4.3) H 06/10/16 06:20 Baso % (Auto) 0.5 % (0.0-1.8) 06/10/16 06:20 Lymph # 1.5 K/mm3 (1.2-5.4) 06/10/16 06:20 [place] # 0.7 K/mm3 (0.0-0.8) 06/10/16 06:20 Eos # 0.3 K/mm3 (0.0-0.4) 06/10/16 06:20 Baso # 0.0 K/mm3 (0.0-0.1) 06/10/16 06:20 Seg Neutrophils % 49.7 % (40.0-70.0) 06/10/16 06:20 Seg Neutrophils # 2.4 K/mm3 (1.8-7.7) 06/10/16 06:20 ESR 12 mm/Hr (0-20) 06/09/16 07:17 PT 15.2 Sec. (12.2-14.9) H 06/09/16 07:17 INR 1.21 (0.87-1.13) H 06/09/16 07:17 Sodium 142 mmol/L (137-145) D 06/10/16 06:20 Potassium 3.9 mmol/L (3.6-5.0) 06/10/16 06:20 Chloride 109.4 mmol/L (98-107) H 06/10/16 06:20 Carbon Dioxide 22 mmol/L (22-30) 06/10/16 06:20 Anion Gap 15 mmol/L 06/10/16 06:20 BUN 11 mg/dL (9-20) 06/10/16 06:20 Creatinine 0.8 mg/dL (0.8-1.5) 06/10/16 06:20 Estimated GFR > 60 ml/min 06/10/16 06:20 BUN/Creatinine Ratio 13.75 % 06/10/16 06:20 Glucose 94 mg/dL (75-100) 06/10/16 06:20 Lactic Acid 1.7 mmol/L (0.7-2.0) 06/09/16 07:28 Calcium 8.2 mg/dL (8.4-10.2) L 06/10/16 06:20 Magnesium 1.7 mg/dL (1.7-2.3) 06/09/16 07:17 Total Bilirubin 1.00 mg/dL (0.1-1.2) 06/10/16 06:20 Direct Bilirubin 0.4 mg/dL (0-0.2) H 06/09/16 07:17 Indirect Bilirubin 0.7 mg/dL 06/09/16 07:17 AST 25 units/L (5-40) 06/10/16 06:20 ALT 10 units/L (7-56) 06/10/16 06:20 Alkaline Phosphatase 65 units/L (35-129) 06/10/16 06:20 Ammonia 68.0 umol/L (25-60) H 06/09/16 07:17 Total Creatine Kinase 135 units/L (55-170) 06/09/16 07:17 C-Reactive Protein 2.30 mg/dL (0.00-1.30) H 06/09/16 07:17 Total Protein 5.2 g/dL (6.3-8.2) L 06/10/16 06:20 Albumin 2.4 g/dL (3.9-5) L 06/10/16 06:20 Albumin/Globulin Ratio 0.9 % 06/10/16 06:20 Plasma/Serum Alcohol 0.02 gm% (0-0.07) 06/09/16 07:17
[2016-06-10] MEDS: LOVENOX SUB-Q SCH (09:50)
[2016-06-10] MEDS: LEVAQUIN 750MG/150ML 750 MG/150 ML BAG IV SCH (09:50)
[2016-06-10] MEDS: DILAUDID IV PRN ×2 (13:06→18:33)
[2016-06-10] MEDS: ROXICODONE PO SCH ×2 (13:41→18:40)
[2016-06-10] MEDS: ATIVAN PO SCH (13:41)
[2016-06-10] MEDS: ALDACTONE PO SCH (14:57)
[2016-06-10] MEDS: SYNTHROID PO SCH (15:02)
[2016-06-10] MEDS: CEPHULAC PO SCH (22:21)
[2016-06-11] MEDS: ATIVAN PO SCH ×2 (00:01→12:32)
[2016-06-11] MEDS: ROXICODONE PO SCH ×4 (00:01→18:42)
[2016-06-11] MEDS: XIFAXAN PO SCH ×3 (00:02→21:25)
[2016-06-11] MEDS: DILAUDID IV PRN ×4 (03:43→20:02)
[2016-06-11] MEDS: SYNTHROID PO SCH (06:08)
[2016-06-11] MEDS ORDERED: NON-FORMULARY (Omeprazole 20 MG) PO SCH (10:00)
[2016-06-11] MEDS: CEPHULAC PO SCH ×2 (10:27→21:24)
[2016-06-11] MEDS: ALDACTONE PO SCH (10:27)
[2016-06-11] MEDS: VITAMIN B-1 PO SCH (10:27)
[2016-06-11] MEDS: THERAGRAN Tab PO SCH (10:28)
[2016-06-11] MEDS: PROTONIX PO SCH (10:32)
[2016-06-11] MEDS: LOVENOX SUB-Q SCH (10:32)
[2016-06-11] MEDS: LEVAQUIN PO SCH (11:19)
--- NOTE | 2016-06-11 11:51 | Progress Note ---
Assessment and Plan Assessment and plan: 55-year-old male with a history of left ankle repair with hardware presents to the hospital with drainage from the left ankle Patient stated he had surgery on her left ankle about 5 weeks ago. Patient state that the screw was taken out of his ankle, and that he had picc line and several weeks of abx. Patient did not receive adequate follow-up care patient state that he came in today because the pain and drainage from the leg. States that his orthopedic surgeons were in [place] and has since relocated to [place]. (1) Ankle osteomyelitis, left ankle continue on IV antibiotics, will get infectious disease consult on Sunday, orthopedic consult appreciated said, they recommend that he follow-up with his original orthopedic surgeons who performed the procedure., adequate pain control. (2) Continuous opioid dependence continue oxycodone 3. Anxiety disorder/depression continue ativan continue seroquel 4. CLD Rifaximin and lactulose History Interval history: continues to c/o of left ankle pain, drainage, swelling Hospitalist Physical - Physical exam Narrative exam: General: Patient appears well in no distress HEENT: MMM, EOMI cardiac: S1-S2 heard lungs: clear to auscultation, abdomen: soft, nontender, nondistended bowel sounds positive extremities: left foot and ankle edema, foul smelling purulent drainage around stiches on the lateral aspect on ankle Skin: no rash or lesion Neuro: no focal deficit Psych: appropriate behavior and mood, cognition intact - Constitutional Vitals: Temp Pulse Resp BP Pulse Ox 98.1 F 76 18 115/65 97 06/11/16 08:20 06/11/16 08:20 06/11/16 08:20 06/11/16 10:27 06/11/16 08:20 General appearance: Present: mild distress Results - Labs CBC & Chem 7: 06/10/16 06:20 06/10/16 06:20 Labs: Laboratory Last Values WBC 4.9 K/mm3 (4.5-11.0) 06/10/16 06:20 RBC 3.52 M/mm3 (3.65-5.03) L 06/10/16 06:20 Hgb 11.0 gm/dl (11.8-15.2) L 06/10/16 06:20 Hct 33.1 % (35.5-45.6) L 06/10/16 06:20 MCV 94 fl (84-94) 06/10/16 06:20 MCH 31 pg (28-32) 06/10/16 06:20 MCHC 33 % (32-34) 06/10/16 06:20 RDW 15.1 % (13.2-15.2) 06/10/16 06:20 Plt Count 106 K/mm3 (140-440) L 06/10/16 06:20 Lymph % (Auto) 30.2 % (13.4-35.0) 06/10/16 06:20 [place] % (Auto) 13.6 % (0.0-7.3) H 06/10/16 06:20 Eos % (Auto) 6.0 % (0.0-4.3) H 06/10/16 06:20 Baso % (Auto) 0.5 % (0.0-1.8) 06/10/16 06:20 Lymph # 1.5 K/mm3 (1.2-5.4) 06/10/16 06:20 [place] # 0.7 K/mm3 (0.0-0.8) 06/10/16 06:20 Eos # 0.3 K/mm3 (0.0-0.4) 06/10/16 06:20 Baso # 0.0 K/mm3 (0.0-0.1) 06/10/16 06:20 Seg Neutrophils % 49.7 % (40.0-70.0) 06/10/16 06:20 Seg Neutrophils # 2.4 K/mm3 (1.8-7.7) 06/10/16 06:20 ESR 12 mm/Hr (0-20) 06/09/16 07:17 PT 15.2 Sec. (12.2-14.9) H 06/09/16 07:17 INR 1.21 (0.87-1.13) H 06/09/16 07:17 Sodium 142 mmol/L (137-145) D 06/10/16 06:20 Potassium 3.9 mmol/L (3.6-5.0) 06/10/16 06:20 Chloride 109.4 mmol/L (98-107) H 06/10/16 06:20 Carbon Dioxide 22 mmol/L (22-30) 06/10/16 06:20 Anion Gap 15 mmol/L 06/10/16 06:20 BUN 11 mg/dL (9-20) 06/10/16 06:20 Creatinine 0.8 mg/dL (0.8-1.5) 06/10/16 06:20 Estimated GFR > 60 ml/min 06/10/16 06:20 BUN/Creatinine Ratio 13.75 % 06/10/16 06:20 Glucose 94 mg/dL (75-100) 06/10/16 06:20 Lactic Acid 1.7 mmol/L (0.7-2.0) 06/09/16 07:28 Calcium 8.2 mg/dL (8.4-10.2) L 06/10/16 06:20 Magnesium 1.7 mg/dL (1.7-2.3) 06/09/16 07:17 Total Bilirubin 1.00 mg/dL (0.1-1.2) 06/10/16 06:20 Direct Bilirubin 0.4 mg/dL (0-0.2) H 06/09/16 07:17 Indirect Bilirubin 0.7 mg/dL 06/09/16 07:17 AST 25 units/L (5-40) 06/10/16 06:20 ALT 10 units/L (7-56) 06/10/16 06:20 Alkaline Phosphatase 65 units/L (35-129) 06/10/16 06:20 Ammonia 68.0 umol/L (25-60) H 06/09/16 07:17 Total Creatine Kinase 135 units/L (55-170) 06/09/16 07:17 C-Reactive Protein 2.30 mg/dL (0.00-1.30) H 06/09/16 07:17 Total Protein 5.2 g/dL (6.3-8.2) L 06/10/16 06:20 Albumin 2.4 g/dL (3.9-5) L 06/10/16 06:20 Albumin/Globulin Ratio 0.9 % 06/10/16 06:20 Plasma/Serum Alcohol 0.02 gm% (0-0.07) 06/09/16 07:17
[2016-06-11] MEDS: VANCOMYCIN 1,250 MG in NACL 0.9% 250ML 250 ML IV SCH (14:54)
[2016-06-11] MEDS: LEVAQUIN 750MG/150ML 750 MG/150 ML BAG IV SCH (17:17)
[2016-06-11] MEDS: NACL 0.9% 1000 ML 1,000 ML IV SCH (18:44)
[2016-06-12] MEDS: ATIVAN PO SCH ×2 (00:19→12:25)
[2016-06-12] MEDS: DILAUDID IV PRN ×5 (00:19→20:39)
[2016-06-12] MEDS: NACL 0.9% 1000 ML 1,000 ML IV SCH ×2 (05:39→21:22)
[2016-06-12] MEDS: ROXICODONE PO SCH ×4 (05:40→18:18)
[2016-06-12] MEDS: SYNTHROID PO SCH (05:40)
--- NOTE | 2016-06-12 09:06 | Progress Note ---
Assessment and Plan Assessment and plan: 55-year-old male with a history of left ankle repair with hardware presents to the hospital with drainage from the left ankle Patient stated he had surgery on her left ankle about 5 weeks ago. Patient state that the screw was taken out of his ankle, and that he had picc line and several weeks of abx. Patient did not receive adequate follow-up care patient state that he came in today because the pain and drainage from the leg. States that his orthopedic surgeons were in [place] and has since relocated to [place]. (1) Ankle osteomyelitis, left ankle continue on IV antibiotics, fup infectious disease consult, orthopedic consult appreciated said, they recommend that he follow-up with his original orthopedic surgeons who performed the procedure., adequate pain control. (2) Continuous opioid dependence continue oxycodone 3. Anxiety disorder/depression continue ativan continue seroquel 4. CLD Rifaximin and lactulose History Interval history: continues to c/o of left ankle pain, drainage, swelling Hospitalist Physical - Physical exam Narrative exam: General: Patient appears well in no distress HEENT: MMM, EOMI cardiac: S1-S2 heard lungs: clear to auscultation, abdomen: soft, nontender, nondistended bowel sounds positive extremities: left foot and ankle edema, foul smelling purulent drainage around stiches on the lateral aspect on ankle Skin: no rash or lesion Neuro: no focal deficit Psych: appropriate behavior and mood, cognition intact - Constitutional Vitals: Temp Pulse Resp BP Pulse Ox 98.6 F 84 20 126/64 96 06/11/16 20:00 06/11/16 20:00 06/12/16 01:25 06/11/16 20:00 06/11/16 20:00 General appearance: Present: mild distress Results - Labs CBC & Chem 7: 06/10/16 06:20 06/10/16 06:20 Labs: Laboratory Last Values WBC 4.9 K/mm3 (4.5-11.0) 06/10/16 06:20 RBC 3.52 M/mm3 (3.65-5.03) L 06/10/16 06:20 Hgb 11.0 gm/dl (11.8-15.2) L 06/10/16 06:20 Hct 33.1 % (35.5-45.6) L 06/10/16 06:20 MCV 94 fl (84-94) 06/10/16 06:20 MCH 31 pg (28-32) 06/10/16 06:20 MCHC 33 % (32-34) 06/10/16 06:20 RDW 15.1 % (13.2-15.2) 06/10/16 06:20 Plt Count 106 K/mm3 (140-440) L 06/10/16 06:20 Lymph % (Auto) 30.2 % (13.4-35.0) 06/10/16 06:20 [place] % (Auto) 13.6 % (0.0-7.3) H 06/10/16 06:20 Eos % (Auto) 6.0 % (0.0-4.3) H 06/10/16 06:20 Baso % (Auto) 0.5 % (0.0-1.8) 06/10/16 06:20 Lymph # 1.5 K/mm3 (1.2-5.4) 06/10/16 06:20 [place] # 0.7 K/mm3 (0.0-0.8) 06/10/16 06:20 Eos # 0.3 K/mm3 (0.0-0.4) 06/10/16 06:20 Baso # 0.0 K/mm3 (0.0-0.1) 06/10/16 06:20 Seg Neutrophils % 49.7 % (40.0-70.0) 06/10/16 06:20 Seg Neutrophils # 2.4 K/mm3 (1.8-7.7) 06/10/16 06:20 ESR 12 mm/Hr (0-20) 06/09/16 07:17 PT 15.2 Sec. (12.2-14.9) H 06/09/16 07:17 INR 1.21 (0.87-1.13) H 06/09/16 07:17 Sodium 142 mmol/L (137-145) D 06/10/16 06:20 Potassium 3.9 mmol/L (3.6-5.0) 06/10/16 06:20 Chloride 109.4 mmol/L (98-107) H 06/10/16 06:20 Carbon Dioxide 22 mmol/L (22-30) 06/10/16 06:20 Anion Gap 15 mmol/L 06/10/16 06:20 BUN 11 mg/dL (9-20) 06/10/16 06:20 Creatinine 0.8 mg/dL (0.8-1.5) 06/10/16 06:20 Estimated GFR > 60 ml/min 06/10/16 06:20 BUN/Creatinine Ratio 13.75 % 06/10/16 06:20 Glucose 94 mg/dL (75-100) 06/10/16 06:20 Lactic Acid 1.7 mmol/L (0.7-2.0) 06/09/16 07:28 Calcium 8.2 mg/dL (8.4-10.2) L 06/10/16 06:20 Magnesium 1.7 mg/dL (1.7-2.3) 06/09/16 07:17 Total Bilirubin 1.00 mg/dL (0.1-1.2) 06/10/16 06:20 Direct Bilirubin 0.4 mg/dL (0-0.2) H 06/09/16 07:17 Indirect Bilirubin 0.7 mg/dL 06/09/16 07:17 AST 25 units/L (5-40) 06/10/16 06:20 ALT 10 units/L (7-56) 06/10/16 06:20 Alkaline Phosphatase 65 units/L (35-129) 06/10/16 06:20 Ammonia 68.0 umol/L (25-60) H 06/09/16 07:17 Total Creatine Kinase 135 units/L (55-170) 06/09/16 07:17 C-Reactive Protein 2.30 mg/dL (0.00-1.30) H 06/09/16 07:17 Total Protein 5.2 g/dL (6.3-8.2) L 06/10/16 06:20 Albumin 2.4 g/dL (3.9-5) L 06/10/16 06:20 Albumin/Globulin Ratio 0.9 % 06/10/16 06:20 Plasma/Serum Alcohol 0.02 gm% (0-0.07) 06/09/16 07:17
[2016-06-12] MEDS: LEVAQUIN PO SCH (09:29)
[2016-06-12] MEDS: PROTONIX PO SCH (09:29)
[2016-06-12] MEDS: LOVENOX SUB-Q SCH (09:29)
[2016-06-12] MEDS: XIFAXAN PO SCH ×2 (09:29→21:26)
[2016-06-12] MEDS: VITAMIN B-1 PO SCH (09:29)
[2016-06-12] MEDS: ALDACTONE PO SCH (09:29)
[2016-06-12] MEDS: CEPHULAC PO SCH ×2 (09:29→21:27)
[2016-06-12] MEDS: THERAGRAN Tab PO SCH (11:54)
[2016-06-12] MEDS ORDERED: CEPHULAC PO ONE (13:00)
--- NOTE | 2016-06-12 15:51 | XRay Report ---
AP CHEST: 06/12/16 15:00 CLINICAL: PICC line insertion. FINDINGS: A right PICC line tip is in the lower SVC in good position. The lungs are normally expanded and clear. No pneumothorax. Normal heart and pulmonary vessels. IMPRESSION: Satisfactory placement of a right PICC line. No acute cardiopulmonary process.
[2016-06-12] MEDS: VANCOMYCIN 1,250 MG in NACL 0.9% 250ML 250 ML IV SCH (16:20)
--- NOTE | 2016-06-12 17:13 | Progress Note ---
Assessment and Plan - Patient Problems (1) Osteomyelitis Current Visit: Yes Status: Acute Qualifiers: Osteomyelitis location: O Laterality: left Chronicity: subacute Plan to address problem: PIC line in, Disch to home with antibiotics/ NWB-crutches, wound care. Follow up his orthopedist Dr. Ward on discharge Will sign off (2) Continuous opioid dependence Current Visit: Yes Status: Chronic Plan to address problem: Discontinue Dilaudid/ oxycodine Tramadol/ tylenil for pain, folow with his pain MD Subjective Date of service: 06/12/16 Objective Vital signs: Vital Signs - 12hr 06/12/16 06/12/16 06/12/16 08:23 09:29 16:30 Temperature 98.3 F 98.0 F Pulse Rate [ 60 82 From Monitor] Respiratory 20 18 Rate Blood Pressure 120/78 Blood Pressure 110/68 124/75 [Left Arm] O2 Sat by Pulse 96 96 Oximetry - Labs CBC & BMP: 06/10/16 06:20 06/10/16 06:20
[2016-06-12] MEDS: VANCOMYCIN 1,500 MG in NACL 0.9% 500 ML 500 ML IV SCH (17:21)
[2016-06-13] MEDS: ROXICODONE PO SCH ×4 (00:04→18:02)
[2016-06-13] MEDS: ATIVAN PO SCH (00:06)
[2016-06-13] MEDS: DILAUDID IV PRN ×5 (01:19→22:24)
[2016-06-13] MEDS: VANCOMYCIN 1,500 MG in NACL 0.9% 500 ML 500 ML IV SCH ×2 (05:12→16:14)
[2016-06-13] MEDS: SYNTHROID PO SCH (05:15)
[2016-06-13] MEDS: NACL 0.9% 1000 ML 1,000 ML IV SCH ×2 (06:04→16:15)
--- NOTE | 2016-06-13 09:32 | Progress Note ---
Assessment and Plan 55-year-old male with a history of left ankle repair with hardware presents to the hospital with drainage from the left ankle. Patient stated he had surgery on her left ankle about 5 weeks ago and the screw was taken out of his ankle, followed by several weeks of abx treatment. Patient did not receive adequate follow-up care and presented to ED because the worsening leg pain and drainage from the leg. Ankle osteomyelitis, left - continue on IV antibiotics, fup infectious disease consult for abx recommendation, orthopedic consult appreciated said, they recommend that he follow-up with his original orthopedic surgeons who performed the procedure. Cont adequate pain control. Opioid dependency - continue oxycodone Anxiety disorder/depression - continue seroquel, will d/c ativan Chronic liver disease - Rifaximin and lactulose Subjective Date of service: 06/13/16 Interval history: Patient seen and examined. Medical records and medication list reviewed. No acute event overnight noted by the RN. Patient denies any chest pain or difficulty breathing. Patient is tolerating diet. Continue to complain of left ankle pain and anxiety Discussed plan of care at bedside with patient. Objective - Exam Narrative Exam: GENERAL: well-developed and well-nourished WM lying on bed appeared to be in no discomfort. HEENT: Normocephalic. Atraumatic. No conjunctival congestion or icterus. Patient has moist mucous membranes. NECK: Supple. Trachea midline. CHEST/LUNGS: Clear to auscultated bilaterally, breathing nonlabored. No wheezes crackles or rhonchi. HEART/CARDIOVASCULAR: Regular in rate and rhythm. S1 and S2 positive. ABDOMEN: Abdomen is soft, nontender. Patient has normal bowel sounds. SKIN: There is no rash. Warm and dry. NEURO: No focal motor deficit. Follows command. MUSCULOSKELETAL: Left leg with wound dressing EXTRIMITY: no cyanosis or clubbing. PSYCH: Cooperative. - Constitutional Vitals: Vital Signs - 12hr 06/12/16 06/12/16 06/13/16 21:31 23:07 07:00 Temperature 98.4 F 97.6 F Pulse Rate [ 79 From Monitor] Pulse Rate [ 85 Left Brachial] Pulse Rate [ 88 Right Radial] Respiratory 16 18 18 Rate Blood Pressure 126/65 124/70 [Left Arm] O2 Sat by Pulse 96 98 97 Oximetry - Labs CBC & Chem 7: 06/10/16 06:20 06/10/16 06:20
[2016-06-13] MEDS: VITAMIN B-1 PO SCH (10:18)
[2016-06-13] MEDS: LEVAQUIN PO SCH (10:18)
[2016-06-13] MEDS: LOVENOX SUB-Q SCH (10:18)
[2016-06-13] MEDS: ALDACTONE PO SCH (10:19)
[2016-06-13] MEDS: THERAGRAN Tab PO SCH (10:19)
[2016-06-13] MEDS: XIFAXAN PO SCH ×2 (10:19→21:50)
[2016-06-13] MEDS: CEPHULAC PO SCH ×2 (10:19→21:50)
[2016-06-13] MEDS: PROTONIX PO SCH (10:20)
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
[2016-06-13] MEDS: RIFADIN PO SCH (18:03)
[2016-06-14] MEDS: ROXICODONE PO SCH ×4 (00:38→12:41)
[2016-06-14] MEDS: NACL 0.9% 1000 ML 1,000 ML IV SCH (00:39)
[2016-06-14] MEDS: DILAUDID IV PRN ×2 (04:48→10:29)
[2016-06-14] MEDS: VANCOMYCIN 1,500 MG in NACL 0.9% 500 ML 500 ML IV SCH (04:48)
[2016-06-14] MEDS: SYNTHROID PO SCH (05:03)
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
[2016-06-14] MEDS: ALDACTONE PO SCH (10:19)
[2016-06-14] MEDS: THERAGRAN Tab PO SCH (10:19)
[2016-06-14] MEDS: PROTONIX PO SCH (10:19)
[2016-06-14] MEDS: LEVAQUIN PO SCH (10:19)
[2016-06-14] MEDS: RIFADIN PO SCH (10:21)
[2016-06-14] MEDS: XIFAXAN PO SCH (10:21)
[2016-06-14] MEDS: VITAMIN B-1 PO SCH (10:21)
[2016-06-14] MEDS: LOVENOX SUB-Q SCH (10:22)
[2016-06-14] MEDS: CEPHULAC PO SCH (10:22)
--- NOTE | 2016-06-14 11:01 | Query-Infection ---
"Deagui Pimentel Date:_06/14/16 Atmospheric Drier Tender/CDS:Madelaine Gee Phone#:_[phone] Exercise your independent professional judgment when responding to this query. Questions asked do not imply a particular answer is desired or expected. We greatly appreciate your clarification on this issue. Clinical Documentation States: 55-year-old male with a history of left ankle repair with hardware presents to the hospital with drainage from the left ankle tendinitis. Patient stated he had surgery on her left ankle about 5 weeks ago. Patient state that the screw was taken out of his scan and it was removed. Patient did not receive adequate follow-up care patient state that he came in today because the pain and drainage from the leg Clinical findings show: (please check applicable parameters) Infection, known /suspected, with some of the following indicators; Specify the infection: Ankle cellulitis Temp 101.0 on 06/09 @23:25 Wound culture grew Staph Aureus C-Reactive protein 2.3 3 General parameters [ ] Fever (core temp >38.30C or 100.40F) [ ] Hypothermia (core temp <36C) [ ] Heart rate >90 bpm [ ] Tachypnea: >20 bpm or pCO2 < 32 mmHg [ ] Altered mental status [ ] Significant edema / +ve fluid balance (>20 ml/kg 24 h) [ ] Hyperglycemia (Bl. glucose >110 mg/dl) w/o diabetes Inflammatory parameters [ ] Leukocytosis (white blood cell count >12,000/l) [ ] Leukopenia (white blood cell count <4,000/l) [ ] Bandemia (immature WBC > 10%) [ ] Leucocyte Left Shift [ ] Plasma procalcitonin>2 SD above the normal value Hemodynamic and tissue perfusion parameters [ ] Arterial hypotension(SBP <90 mmHg, MAP <70 mmHg,or a SBP drop >40 mmHg in adults) [ ] Hyperlactatemia (>3 mmol/l) [ ] Anion Gap (> 11mEG/l) [ ] Decreased capillary refill or mottling Organ dysfunction parameters [ ] Arterial hypoxemia (PaO2/FIO2 <300) [ ] Creatinine increase =0.5 mg/dl [ ] Acute oliguria (urine output <0.5 ml | kg |h or 45 mM/l for at least 2 hrs) [ ] Coagulation abnormalities (INR >1.5 or activated partial thromboplastin time >60 s) [ ] Ileus (absent peterson wel sounds) [ ] Thrombocytopenia (platelet count <100,000/l) [ ] Hyperbilirubinemia (plasma total bilirubin >4 mg/dl) According to the clinical indications above, can Bacteremia be further specified? If so, please indicate below and in your Progress Notes and/ or Discharge Summary. Indicate if the condition was present on admission. PHYSICIAN RESPONSE: [ ] Sepsis [ ] Severe Sepsis [ ] Septic Shock [ ] Septicemia [ ] Sepsis now resolved [ ] SIRS due to non-infectious cause with organ dysfunction [ ] SIRS due to non-infectious cause without organ dysfunction [ X] Other:_sepsis not present [ ] Comment/Explanation: Present on Admission: [ ] Yes (Y) [ X] Clinically undeterminable (W) [ ] No (N) [ ] Ruled Out Please also document response in your Progress Notes and/or Discharge Summary and indicate if the condition was present on admission Notes: SIRS/ SIRS WITH ORGAN DYSFUNCTION Systemic inflammatory response syndrome (SIRS) generally refers to the systemic response to trauma/dickens or other insult such as Acute Myocardial Infarction, Acute Pancreatitis, and Major Surgery with symptoms including fever, tachycardia , tachypnea, and leukocytosis (1). BACTEREMIA Presence of viable bacteria in the circulating blood (2). This term is reserved for patients that do not manifest above SIRS response. SEPTICEMIA Generally refers to a systemic disease associated with the presence of pathological microorganisms or toxins in the blood, which can include bacteria, viruses, fungi or other organisms (1). SEPSIS Generally refers to SIRS due infection (1). SEVERE SEPSIS Generally refers to sepsis associated with acute organ dysfunction (1). SEPTIC SHOCK Generally refers to circulatory failure associated with severe sepsis (2), and defined as hypotension or hypoperfusion despite adequate fluid resuscitation (1 hour) (3). REFERENCES: 1. [employer] [employer]/Society of Critical Care Medicine Consensus Conference. Definitions for sepsis and organ failure and guidelines for the use of innovative therapies in sepsis. Critical Care Med 1992;20:864 - 74. 2. Adria louis MM, Renetta MP, Arturo CALLI, Brad E, Bharat D, Kaiser D, Shirley J, Braxton SM , Dav JL, Marci G; International Sepsis Definitions Conference. 2001 SCCM/ESICM/ACCP/ATS/SIS International Sepsis Definitions Conference. Intensive Care Med. 2002;29(4):530-8. Epub 2002May 09. Review. PubMed PMID:[id number] 3. ICD-9-CM Official Guidelines for Coding and Reporting 4. Medscape Drugs, Diseases and Procedures references 5. [employer] Textbook of Internal Medicine. 18th Edition MTDD"
[2016-06-14 12:55] VITALS: BP 120/62
== END 2016-06-14 13:10 | disposition home health service (06) | DRG 540 ==
LOC: ED 02:25 → 3A 09:05
PROVIDERS: ADMIT Internal Medicine; ATTEND Internal Medicine
PROC: 05HP33Z Insertion of Infusion Device into Right External Jugular Vein, Percutaneous Approach (ICD-10-PCS; principal; 2016-06-09)
DX: M86.8X7 Other osteomyelitis, ankle and foot (principal); L03.116 Cellulitis of left lower limb; F11.20 Opioid dependence, uncomplicated; K21.9 Gastro-esophageal reflux disease without esophagitis; F17.200 Nicotine dependence, unspecified, uncomplicated; G89.29 Other chronic pain; F41.9 Anxiety disorder, unspecified; F32.9 Major depressive disorder, single episode, unspecified; K72.10 Chronic hepatic failure without coma; B19.20 Unspecified viral hepatitis C without hepatic coma; E03.9 Hypothyroidism, unspecified
CPT/HCPCS: 36415; 71010; 80048; 80053; 80074; 80202; 80320; 82140; 82550; 83735; 85025; 85610; 85652; 86140; 87040; 87076; 87116; 87186; 96365; 96375; G0480; J1170; J1580; J1650; J1956; J2270; J3370; J7030; J7040; J7050

== ENCOUNTER 2016-06-30 15:38 | Inpatient (IN) | payer MEDICAID ==
[2016-06-30 16:57] LABS: Urine Drugs of Abuse Note Disclamer
[2016-06-30 17:26] LABS: Bilirubin,Urine NEG (Negative); Blood,Urine NEG (Negative); Ketones,Urine NEG (Negative); Leukocyte Esterase,Urine NEG (Negative); Nitrite,Urine NEG (Negative); Protein,Urine <15 mg/dL mg/dL (Negative); Urobilinogen,Urine < 2.0 mg/dL (<2.0); WBC,Urine < 1.0 /HPF (0.0-6.0)
[2016-06-30 17:39] LABS: Basophils % (Auto) 0.5 % (0.0-1.8); Eosinophils % (Auto) 2.4 % (0.0-4.3); Hemoglobin 14.2 gm/dl (11.8-15.2); Mean Corpuscular HGB Conc 33 % (32-34); Mean Corpuscular Hemoglobin 31 pg (28-32); Mean Corpuscular Volume 93 fl (84-94); Platelet Count 184 K/mm3 (140-440); Red Blood Count 4.61 M/mm3 (3.65-5.03); Red Cell Distribution Width 15.3 % (13.2-15.2); White Blood Count 10.9 K/mm3 (4.5-11.0)
[2016-06-30] MEDS ORDERED: VITAMIN B-1 100 MG, FOLVITE 1 MG, INFUVITE 10 ML in NACL 0.9% 1000 ML 1,000 ML IV ONE (17:46)
[2016-06-30] MEDS ORDERED: NACL 0.9% 1000 ML 1,000 ML IV ONE (17:46)
[2016-06-30 18:01] LABS: Anion Gap 21 mmol/L; BUN/Creatinine Ratio 11.25; Blood Urea Nitrogen 9 mg/dL (9-20); Calcium 8.3 mg/dL (8.4-10.2); Carbon Dioxide 19 mmol/L (22-30); Chloride 107.2 mmol/L (98-107); Glucose 104 mg/dL (75-100); Potassium 3.9 mmol/L (3.6-5.0); Sodium 143 mmol/L (137-145)
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
[2016-06-30] MEDS ORDERED: PROTONIX IV ONE (19:26)
[2016-06-30] MEDS ORDERED: TYLENOL PO ONE (19:27)
[2016-06-30] MEDS ORDERED: MOTRIN PO ONE ×2 (19:36→19:40)
[2016-06-30 19:53] LABS: Creatine Kinase MB 1.5 ng/mL (0.0-4.0)
[2016-06-30 19:54] LABS: Albumin 3.5 g/dL (3.9-5); Albumin/Globulin Ratio 1.3 %; Bilirubin,Direct 0.2 mg/dL (0-0.2); Bilirubin,Indirect 0.4 mg/dL; Bilirubin,Total 0.6 mg/dL (0.1-1.2); Total Protein 6.3 g/dL (6.3-8.2)
[2016-06-30] MEDS ORDERED: VANCOMYCIN PHARMACY TO DOSE IV SCH (20:00)
[2016-06-30] MEDS ORDERED: VANCOMYCIN 1,750 MG in NACL 0.9% 500 ML 500 ML IV ONE (20:00)
[2016-06-30] MEDS ORDERED: DULCOLAX PR PRN (22:13)
[2016-06-30] MEDS ORDERED: ZOFRAN IV PRN (22:13)
[2016-06-30] MEDS ORDERED: MILK OF MAGNESIA PO PRN (22:13)
--- NOTE | 2016-06-30 22:19 | History and Physical Report ---
History of Present Illness Date of examination: 06/30/16 Date of admission: 06/30/16 19:23 History of present illness: 55-year-old man with a history of chronic pain, cirrhosis, hypothyroidism, GERD was status post trauma to the left ankle, status post ORIF and removal of hardware secondary to infection. Patient was recently discharged from this hospital where he was treated for osteomyelitis of the left ankle, he stated he is compliant with his Ciprofloxacillin, which she is supposed to take for a total of 6 weeks. He stated he is unable to ambulate Patient denies chest pain, palpitation, shortness of breath, cough, abdominal pain, hematochezia, dysuria, frequency, focal weakness, dysarthria, fever chills , polydipsia polyuria, hot or cold intolerance, easy bruisability, or rash or bleeding from mucosal membrane, rhinorrhea, epistaxis, earache, tinnitus, blurry vision, eye discharge, anxiety, depression. Other review of systems negative PAST SURGICAL HISTORY: ORIF of left ankle, status post hardware removal SOCIAL HISTORY: He denies tobacco, alcohol, drugs, his urine was positive for cocaine and alcohol FAMILY HISTORY: Hypertension Medications and Allergies Allergies Allergy/AdvReac Type Severity Reaction Status Date / Time No Known Allergies Allergy Verified 10/06/15 09:46 Home Medications Medication Instructions Recorded Confirmed Last Taken Type Lactulose 15 - 30 ml PO TID PRN 30 Days 06/14/16 06/30/16 Unknown Rx Levothyroxine [Synthroid] 88 mcg PO DAILY #30 tablet 06/14/16 06/30/16 Unknown Rx Multivitamin Tab [Multiple Vitamin 1 each PO DAILY #30 tablet 06/14/16 06/30/16 Unknown Rx TAB (Theragran)] Omeprazole 20 mg PO QDAY #30 06/14/16 06/30/16 Unknown Rx Rifaximin [Xifaxan] 550 mg PO BID #60 tablet 06/14/16 06/30/16 Unknown Rx Spironolactone 50 mg PO QDAY #30 06/14/16 06/30/16 Unknown Rx Thiamine [Vitamin B-1] 100 mg PO QDAY #30 tablet 06/14/16 06/30/16 Unknown Rx oxyCODONE [Roxicodone TAB] 5 mg PO Q6HR #20 tablet 06/14/16 06/30/16 Unknown Rx Active Meds: Active Medications Vancomycin HCl 1,500 mg/ (Sodium Chloride) 530 mls @ 333.333 mls/hr IV Q12H [facility] Vancomycin HCl (Vancomycin Pharmacy To Dose) 1 each IV PKCONSULT JESIKA PRN Reason: Protocol Exam - Physical Exam Narrative exam: Gen. appearance: Patient lying in bed, no apparent distress HEENT: Normocephalic, atraumatic, pupils equally round and reactive to light, extraocular movement intact, and no sclericterus,. No JVD or thyromegaly or nodule,neck supple, no carotid bruit ,mucous membranes moist, no exudate or erythema Heart: S1, S2, regular rate and rhythm Lungs: Clear to auscultation bilaterally, breathing comfortable Abdomen: Positive bowel sounds, nontender, nondistended, no organomegaly Extremity: Left ankle wound, clean, dry, no erythema ,No edema, cyanosis, clubbing Skin: No rash, nodules, warm, dry Neuro: Oriented 3, cranial nerves II-12 intact, speech is fluent, motor and sensory intact - Constitutional Vitals: Temp Pulse Resp BP Pulse Ox 98.2 F 68 20 182/90 100 06/30/16 21:19 06/30/16 21:19 06/30/16 21:19 06/30/16 21:19 06/30/16 21:19 Results - Labs CBC & Chem 7: 07/01/16 06:41 06/30/16 17:16 - Imaging and Cardiology Chest x-ray: image reviewed Assessment and Plan ankle xray reviewed Failure to thrive/Difficulty ambulating Left ankle wound/osteomyelitis Cirrhosis Hypothyroidism GERD Admit to medicine Consult physical therapy, wound care Continue ciprofloxacin, outpatient medications DVT prophylaxis
[2016-06-30] MEDS: ROXICODONE PO PRN (23:22)
[2016-07-01] MEDS: ROXICODONE PO PRN ×5 (03:12→20:11)
[2016-07-01] MEDS ORDERED: CEPHULAC PO PRN (03:54)
[2016-07-01] MEDS ORDERED: ALUM-MAG HYDROX-SIMETH 200-200-20MG/5ML PO PRN (04:03)
[2016-07-01] MEDS: SYNTHROID PO SCH (05:52)
[2016-07-01 06:55] LABS: Basophils % (Auto) 0.5 % (0.0-1.8); Eosinophils % (Auto) 1.4 % (0.0-4.3); Hematocrit 39.5 % (35.5-45.6); Hemoglobin 12.8 gm/dl (11.8-15.2); Mean Corpuscular HGB Conc 32 % (32-34); Mean Corpuscular Hemoglobin 30 pg (28-32); Mean Corpuscular Volume 93 fl (84-94); Platelet Count 161 K/mm3 (140-440); Red Blood Count 4.25 M/mm3 (3.65-5.03); Red Cell Distribution Width 14.9 % (13.2-15.2); White Blood Count 11.3 K/mm3 (4.5-11.0)
[2016-07-01 07:17] LABS: Anion Gap 19 mmol/L; BUN/Creatinine Ratio 18.33; Blood Urea Nitrogen 11 mg/dL (9-20); Calcium 7.8 mg/dL (8.4-10.2); Carbon Dioxide 20 mmol/L (22-30); Chloride 106.2 mmol/L (98-107); Glucose 105 mg/dL (75-100); Potassium 4.2 mmol/L (3.6-5.0); Sodium 141 mmol/L (137-145)
[2016-07-01] MEDS ORDERED: VANCOMYCIN 1,500 MG in NACL 0.9% 500 ML 500 ML IV SCH (08:00)
[2016-07-01] MEDS ORDERED: ATIVAN IV PRN (08:39)
--- NOTE | 2016-07-01 09:13 | XRay Report ---
AP CHEST : 06/30/16 15:38:00 CLINICAL: Hypertension. COMPARISON:None FINDINGS: Normal heart and pulmonary vessels. The lungs are normally expanded and clear. Arthritis of the shoulders. IMPRESSION: No acute cardiopulmonary process.
--- NOTE | 2016-07-01 09:19 | XRay Report ---
LEFT ANKLE 2 VIEWS: 06/30/16 15:38:00 CLINICAL: Pain. Previous ORIF. FINDINGS: A minimally displaced fracture of the distal fibula with callus and new bone formation. The major distal fracture fragment of the fibula is demineralized compared to the proximal fibula. Mild periosteal reaction at the medial distal tibia but otherwise normal tibia. The ankle mortise is intact. A large plantar calcaneal spur. Moderate medial and lateral soft tissue swelling and a possible soft tissue ulcer overlying the distal fibula. No foreign body or soft tissue air. IMPRESSION: Subacute posttraumatic healing fracture of the distal fibula with minimal displacement. Nonspecific osteopenia of the major distal fracture fragment of the fibula. No signs specific for osteomyelitis. However, possible soft tissue ulcer overlying the distal fibula.
[2016-07-01] MEDS: VITAMIN B-1 PO SCH (09:54)
[2016-07-01] MEDS: ALDACTONE PO SCH (09:54)
[2016-07-01] MEDS: XIFAXAN PO SCH ×2 (09:54→23:07)
[2016-07-01] MEDS: PROTONIX PO SCH (09:55)
[2016-07-01] MEDS: THERAGRAN Tab PO SCH (09:55)
--- NOTE | 2016-07-01 14:06 | Progress Note ---
Assessment and Plan Assessment and plan: 55-year-old man with a history of chronic pain, cirrhosis, hypothyroidism, GERD was status post trauma to the left ankle, status post ORIF and removal of hardware secondary to infection. Patient was recently discharged from this hospital where he was treated for osteomyelitis of the left ankle, he stated he is compliant with his Ciprofloxacillin, which she is supposed to take for a total of 6 weeks. He stated he is unable to ambulate Patient denies chest pain, palpitation, shortness of breath, cough, abdominal pain, hematochezia, dysuria, frequency, focal weakness, dysarthria, fever chills , polydipsia polyuria, hot or cold intolerance, easy bruisability, or rash or bleeding from mucosal membrane, rhinorrhea, epistaxis, earache, tinnitus, blurry vision, eye discharge, anxiety, depression. Other review of systems negative Failure to thrive/Difficulty ambulating Left ankle wound/osteomyelitis moderate Alcohol withdrawal Alcohol dependence HTN urgency Hepatic encephalopathy Cirrhosis Hypothyroidism GERD Plan * patient a bit confused this morning, with visible tremor. Known hx of hepatic encephalopathy and continues to drinl * Start on CIWA with medication control * Continue current care * Lactulose BID-pt takes at home * Bp better controled. * COUNSELLING PROVIDED ON NEED TO QUIT ETOH AND COCAIN, RISK DISCUSSED IN DETAIL PATEINT VERABLIZED UNDERSTANDING * Start PPI, * Consult physical therapy, wound care. * Wound care education * Continue ciprofloxacin, outpatient medications * DVT prophylaxis * Plan discussed with the patient in detail. * SEIZURE PRECAUTIONS History Interval history: Patient seen and examined this morning, and mild withdrawal with tremor. Claims he only drank 2 bottles of alcohol yesterday and he knows he has liver failure. Also claims no abuse of cocaine. He was in the room where people were using cocaine and he may have inhaled some. Adverse event reported by nursing staff. Physical therapy. Hospitalist Physical - Physical exam Narrative exam: VITAL SIGNS: Reviewed. GENERAL: The patient appeared well nourished and normally developed. Mild tremor Vital signs as documented. HEAD: No signs of head trauma. EYES: Pupils are equal. Extraocular motions intact. EARS: Hearing grossly intact. MOUTH: Oropharynx is normal. NECK: No adenopathy, no JVD. CHEST: Chest with clear breath sounds bilaterally. No wheezes, rales, or rhonchi. CARDIAC: Regular rate and rhythm. S1 and S2, without murmurs, gallops, or rubs. VASCULAR: No Edema. Peripheral pulses normal and equal in all extremities. ABDOMEN: Soft, without detectable tenderness. No sign of distention. No rebound or guarding, and no masses palpated. Bowel Sounds normal. MUSCULOSKELETAL: Good range of motion of all major joints. Extremities without clubbing, cyanosis or edema. NEUROLOGIC EXAM: Alert and oriented x 3. Mild tremor of outstretched arm. No focal sensory or strength deficits. Speech normal. Follows commands. PSYCHIATRIC: Mood normal. SKIN: left heel wound, stitches still in place, no drainage noted. clean - Constitutional Vitals: Temp Pulse Resp BP Pulse Ox 98.8 F 74 20 120/80 96 07/01/16 08:00 07/01/16 08:00 07/01/16 08:00 07/01/16 09:54 07/01/16 10:00 Results - Labs CBC & Chem 7: 07/01/16 06:41 07/01/16 06:41 Labs: Laboratory Last Values WBC 11.3 K/mm3 (4.5-11.0) H 07/01/16 06:41 RBC 4.25 M/mm3 (3.65-5.03) 07/01/16 06:41 Hgb 12.8 gm/dl (11.8-15.2) 07/01/16 06:41 Hct 39.5 % (35.5-45.6) 07/01/16 06:41 MCV 93 fl (84-94) 07/01/16 06:41 MCH 30 pg (28-32) 07/01/16 06:41 MCHC 32 % (32-34) 07/01/16 06:41 RDW 14.9 % (13.2-15.2) 07/01/16 06:41 Plt Count 161 K/mm3 (140-440) 07/01/16 06:41 Lymph % (Auto) 21.8 % (13.4-35.0) 07/01/16 06:41 [place] % (Auto) 8.4 % (0.0-7.3) H 07/01/16 06:41 Eos % (Auto) 1.4 % (0.0-4.3) 07/01/16 06:41 Baso % (Auto) 0.5 % (0.0-1.8) 07/01/16 06:41 Lymph # 2.5 K/mm3 (1.2-5.4) 07/01/16 06:41 [place] # 1.0 K/mm3 (0.0-0.8) H 07/01/16 06:41 Eos # 0.2 K/mm3 (0.0-0.4) 07/01/16 06:41 Baso # 0.1 K/mm3 (0.0-0.1) 07/01/16 06:41 Seg Neutrophils % 67.9 % (40.0-70.0) 07/01/16 06:41 Seg Neutrophils # 7.7 K/mm3 (1.8-7.7) 07/01/16 06:41 ESR 3 mm/Hr (0-20) 06/30/16 17:16 Sodium 141 mmol/L (137-145) 07/01/16 06:41 Potassium 4.2 mmol/L (3.6-5.0) 07/01/16 06:41 Chloride 106.2 mmol/L (98-107) 07/01/16 06:41 Carbon Dioxide 20 mmol/L (22-30) L 07/01/16 06:41 Anion Gap 19 mmol/L 07/01/16 06:41 BUN 11 mg/dL (9-20) 07/01/16 06:41 Creatinine 0.6 mg/dL (0.8-1.5) L 07/01/16 06:41 Estimated GFR > 60 ml/min 07/01/16 06:41 BUN/Creatinine Ratio 18.33 % 07/01/16 06:41 Glucose 105 mg/dL (75-100) H 07/01/16 06:41 Calcium 7.8 mg/dL (8.4-10.2) L 07/01/16 06:41 Magnesium 1.70 mg/dL (1.7-2.3) 06/30/16 17:16 Total Bilirubin 0.60 mg/dL (0.1-1.2) 06/30/16 17:16 Direct Bilirubin 0.2 mg/dL (0-0.2) 06/30/16 17:16 Indirect Bilirubin 0.4 mg/dL 06/30/16 17:16 AST 33 units/L (5-40) 06/30/16 17:16 ALT 13 units/L (7-56) 06/30/16 17:16 Alkaline Phosphatase 99 units/L (35-129) 06/30/16 17:16 Total Creatine Kinase 95 units/L (55-170) 06/30/16 17:16 CK-MB (CK-2) 1.5 ng/mL (0.0-4.0) 06/30/16 17:16 CK-MB (CK-2) Rel Index 1.5 (0-4) 06/30/16 17:16 C-Reactive Protein 0.10 mg/dL (0.00-1.30) 06/30/16 17:16 Total Protein 6.3 g/dL (6.3-8.2) 06/30/16 17:16 Albumin 3.5 g/dL (3.9-5) L 06/30/16 17:16 Albumin/Globulin Ratio 1.3 % 06/30/16 17:16 Urine Color Yellow (Yellow) 06/30/16 16:53 Urine Turbidity Clear (Clear) 06/30/16 16:53 Urine pH 6.0 (5.0-7.0) 06/30/16 16:53 Ur Specific [place] 1.010 (1.003-1.030) 06/30/16 16:53 Urine Protein <15 mg/dl mg/dL (Negative) 06/30/16 16:53 Urine Glucose (UA) Neg mg/dL (Negative) 06/30/16 16:53 Urine Ketones Neg mg/dL (Negative) 06/30/16 16:53 Urine Blood Neg (Negative) 06/30/16 16:53 Urine Nitrite Neg (Negative) 06/30/16 16:53 Urine Bilirubin Neg (Negative) 06/30/16 16:53 Urine Urobilinogen < 2.0 mg/dL (<2.0) 06/30/16 16:53 Ur Leukocyte Esterase Neg (Negative) 06/30/16 16:53 Urine WBC (Auto) < 1.0 /HPF (0.0-6.0) 06/30/16 16:53 Urine RBC (Auto) 1.0 /HPF (0.0-6.0) 06/30/16 16:53 Urine Opiates Screen Presumptive negative 06/30/16 16:53 Urine Methadone Screen Presumptive negative 06/30/16 16:53 Ur Barbiturates Screen Presumptive negative 06/30/16 16:53 Ur Phencyclidine Scrn Presumptive negative 06/30/16 16:53 Ur Amphetamines Screen Presumptive negative 06/30/16 16:53 U Benzodiazepines Scrn Presumptive negative 06/30/16 16:53 Urine Cocaine Screen Presumptive positive 06/30/16 16:53 U Marijuana (THC) Screen Presumptive negative 06/30/16 16:53 Drugs of Abuse Note Disclamer 06/30/16 16:53 Plasma/Serum Alcohol 0.43 gm% (0-0.07) H 06/30/16 17:16 - Imaging and Cardiology Imaging and Cardiology: distal fibula with minimal displacement-post traumatic healing fracture.
[2016-07-01] MEDS: CEPHULAC PO SCH (15:04)
[2016-07-01] MEDS: LIBRIUM PO PRN ×2 (15:09→20:19)
[2016-07-01] MEDS ORDERED: LEVAQUIN PO SCH (18:00)
[2016-07-02] MEDS: CEPHULAC PO SCH (01:10)
[2016-07-02] MEDS: ROXICODONE PO PRN ×3 (01:10→11:34)
[2016-07-02] MEDS: SYNTHROID PO SCH (06:51)
--- NOTE | 2016-07-02 07:31 | Discharge Summary ---
Providers - Providers Date of Admission: 06/30/16 19:23 Date of discharge: 07/02/16 Attending physician: MARK BREAUX MD 06/30/16 22:13 Physical Therapy Evaluation and Treat [CONS] Routine Comment: Reason For Exam: eval and treat 07/01/16 06:34 Consult to Wound/ET Nurse [CONS] Routine Reason For Exam: wound eval Primary care physician: [employer] Hospitalization Reason for admission: AMS Condition: Stable Hospital course: 55-year-old man with a history of chronic pain, cirrhosis, hypothyroidism, GERD was status post trauma to the left ankle, status post ORIF and removal of hardware secondary to infection. Patient was recently discharged from this hospital where he was treated for osteomyelitis of the left ankle, he stated he is compliant with his Ciprofloxacillin, which she is supposed to take for a total of 6 weeks. He stated he is unable to ambulate Patient denies chest pain, palpitation, shortness of breath, cough, abdominal pain, hematochezia, dysuria, frequency, focal weakness, dysarthria, fever chills , polydipsia polyuria, hot or cold intolerance, easy bruisability, or rash or bleeding from mucosal membrane, rhinorrhea, epistaxis, earache, tinnitus, blurry vision, eye discharge, anxiety, depression. Other review of systems negative. PATIENT continues to drink alchol despite recommendations to avoid. he was altered on admission but resolved following lactulose and librium. He is requesting pain meds and valium on discharge and claims he gets valium from the street. I advised against. Due to his pain we will give him few doses of roxicodone on discharge. Also librum. He understands not to drink on this medications. He understands that if he is non complaint and returns to the hospital we will not be giving additional pain meds on discharge. 30 minutes spent on counseling. Community resources provided. Discharge Diagnosis Failure to thrive/Difficulty ambulating Left ankle wound/osteomyelitis moderate Alcohol withdrawal Alcohol dependence HTN urgency Hepatic encephalopathy Cirrhosis Hypothyroidism GERD Disposition: DISCHARGED TO HOME OR SELFCARE Time spent for discharge: 35 MINS Core Measure Documentation - Palliative Care Palliative Care/ Comfort Measures: Not Applicable - Core Measures Any of the following diagnoses?: none - VTE Discharge Requirements Deep Vein Thrombosis/Pulmonary Embolism Present on Admission: No Exam - Physical Exam Narrative exam: VITAL SIGNS: Reviewed. GENERAL: The patient appeared well nourished and normally developed. Mild tremor Vital signs as documented. HEAD: No signs of head trauma. EYES: Pupils are equal. Extraocular motions intact. EARS: Hearing grossly intact. MOUTH: Oropharynx is normal. NECK: No adenopathy, no JVD. CHEST: Chest with clear breath sounds bilaterally. No wheezes, rales, or rhonchi. CARDIAC: Regular rate and rhythm. S1 and S2, without murmurs, gallops, or rubs. VASCULAR: No Edema. Peripheral pulses normal and equal in all extremities. ABDOMEN: Soft, without detectable tenderness. No sign of distention. No rebound or guarding, and no masses palpated. Bowel Sounds normal. MUSCULOSKELETAL: Good range of motion of all major joints. Extremities without clubbing, cyanosis or edema. NEUROLOGIC EXAM: Alert and oriented x 3. Mild tremor of outstretched arm. No focal sensory or strength deficits. Speech normal. Follows commands. PSYCHIATRIC: Mood normal. SKIN: left heel wound, stitches still in place, no drainage noted. clean - Constitutional Vitals: Temp Pulse Resp BP Pulse Ox 98.7 F 70 18 146/78 98 07/02/16 04:00 07/02/16 04:00 07/02/16 06:51 07/02/16 04:00 07/02/16 04:00 Plan Activity: advance as tolerated, fall precautions Diet: low fat Special Instructions: smoking cessation, follow up in rehab, other (MUST AVOID ALCOHOL) Additional Instructions: FOLLOW UP WITH WOUND CARE AND ORTHO PREVIOUSLY RECOMMENDED Follow up with: PRIMARY CARE, [Primary Care Provider] - 3-5 Days Prescriptions: chlordiazePOXIDE [Librium] 10 mg PO DAILY #5 capsule Lactulose 15 - 30 ml PO TID PRN 30 Days PRN Reason: AMMONIA oxyCODONE [Roxicodone TAB] 5 mg PO Q6HR #10 tablet Thiamine [Vitamin B-1] 100 mg PO QDAY #30 tablet
[2016-07-02] MEDS: LIBRIUM PO PRN ×2 (07:40→14:09)
[2016-07-02 08:33] LABS: Hematocrit 39.7 % (35.5-45.6); Mean Corpuscular HGB Conc 33 % (32-34); Mean Corpuscular Hemoglobin 30 pg (28-32); Mean Corpuscular Volume 92 fl (84-94); Red Cell Distribution Width 14.9 % (13.2-15.2); White Blood Count 5.6 K/mm3 (4.5-11.0)
[2016-07-02 08:51] LABS: Platelet Count 97 K/mm3 (140-440)
[2016-07-02 08:59] LABS: BUN/Creatinine Ratio 16.66; Blood Urea Nitrogen 10 mg/dL (9-20); Calcium 8.5 mg/dL (8.4-10.2); Carbon Dioxide 28 mmol/L (22-30); Chloride 100.8 mmol/L (98-107); Glucose 81 mg/dL (75-100); Potassium 4.2 mmol/L (3.6-5.0); Sodium 138 mmol/L (137-145)
[2016-07-02 09:13] LABS: Anion Gap 13 mmol/L
[2016-07-02 09:14] VITALS: BP 139/93
[2016-07-02] MEDS: XIFAXAN PO SCH (09:22)
[2016-07-02] MEDS: THERAGRAN Tab PO SCH (09:22)
[2016-07-02] MEDS: VITAMIN B-1 PO SCH (09:23)
[2016-07-02] MEDS: PROTONIX PO SCH (09:23)
[2016-07-02] MEDS: ALDACTONE PO SCH (09:23)
== END 2016-07-02 13:50 | disposition home or self-care (01) | DRG 540 ==
LOC: ED 15:38 → 3A 19:23
PROVIDERS: ADMIT Internal Medicine; ATTEND Internal Medicine
DX: M86.8X7 Other osteomyelitis, ankle and foot (principal); F10.239 Alcohol dependence with withdrawal, unspecified; F14.10 Cocaine abuse, uncomplicated; G89.29 Other chronic pain; E03.9 Hypothyroidism, unspecified; K21.9 Gastro-esophageal reflux disease without esophagitis; I16.0 Hypertensive urgency; K72.90 Hepatic failure, unspecified without coma; R62.7 Adult failure to thrive; K74.60 Unspecified cirrhosis of liver; F10.229 Alcohol dependence with intoxication, unspecified; M19.90 Unspecified osteoarthritis, unspecified site; Z82.49 Family history of ischemic heart disease and other diseases of the circulatory system
CPT/HCPCS: 36415; 71010; 80048; 80074; 80307; 80320; 81001; 82140; 82550; 82553; 83735; 85025; 85027; 85652; 86140; 87040; 96361; 96374; 96375; C9113; G0480; J2060; J2405; J3370; J3411; J7030; J7040